=== PATIENT | male | born 2000 | race Caucasian/White ===

== ENCOUNTER 2023-10-06 09:28 | Emergency (ER) | payer OTHER, BC ==
--- NOTE | 2023-10-06 09:46 | ED ---
General Adult HPI - General Source: patient, RN notes reviewed Mode of arrival: ambulatory Limitations: no limitations <Jenaro Bazan - Last Filed: 10/06/23 09:40> <Mary Thomas - Last Filed: 10/06/23 13:33> - General Stated complaint: IHS-Back pain Time Seen by Provider: 10/06/23 09:40 - History of Present Illness Initial comments: 22-year-old male presents emergency Department chief complaint low back injury. Patient was sent over by S for further evaluation possible imaging. Patient states he injured his back while lifting 5 pound buckets at his work in which he works at [employer]. Patient states that the pain makes it difficult to move. States his lumbar spine. (Jenaro Bazan) Patient is a 22-year-old male presented ER with chief complaint of back pain/injury. Patient states he was at work on Monday lifting 5 gallon buckets and he felt a pop in his back. Patient states he's been experiencing pain since. He states that he is also extensive radiating pain or numbness down his left leg with movements to the right. Patient does report it is mildly none in between his legs and states his left leg does know when he moves the right way. Patient is endorsing thoracic and lumbar/pelvic girdle pain. Patient denies any other injuries. Patient denies any fevers, bowel or bladder i ncontinence, IV drug use. (Mary Thomas) - Related Data Previous Rx's Medication Instructions Recorded Cyclobenzaprine [Flexeril] 5 mg PO TID PRN #15 tablet 10/06/23 Lidocaine 5% Patch [Lidoderm 5% 1 patch TOPICAL DAILY #10 patch 10/06/23 Patch] Allergies Allergy/AdvReac Type Severity Reaction Status Date / Time No Known Allergies Allergy Verified 10/06/23 09:59 Review of Systems ROS Other: All systems not noted in ROS Statement are negative. <Jenaro Bazan - Last Filed: 10/06/23 09:40> ROS Other: All systems not noted in ROS Statement are negative. <Mary Thomas - Last Filed: 10/06/23 13:33> ROS Statement: Those systems with pertinent positive or pertinent negative responses have been documented in the HPI. General Exam <Jenaro Bazan - Last Filed: 10/06/23 09:40> General appearance: alert, in no apparent distress Head exam: Present: atraumatic, normocephalic, normal inspection Neck exam: Present: normal inspection. Absent: tenderness, meningismus, lymphadenopathy Respiratory exam: Present: normal lung sounds bilaterally. Absent: respiratory distress, wheezes, rales, rhonchi, stridor Cardiovascular Exam: Present: regular rate, normal rhythm, normal heart sounds. Absent: systolic murmur, diastolic murmur, rubs, gallop, clicks Extremities exam: Present: normal inspection, full ROM, normal capillary refill. Absent: tenderness, pedal edema, joint swelling, calf tenderness Back exam: Present: normal inspection, tenderness (Thoracic/lumbar/pelvic girdle), other (Left straight leg test elicits pain radiating down left leg mainly in the posterior thigh. Patient neurovascularly intact. Bilateral strengths equal) Neurological exam: Present: alert, oriented X3, CN II-XII intact Psychiatric exam: Present: normal affect, normal mood Skin exam: Present: warm, dry, intact, normal color. Absent: rash <Mary Thomas - Last Filed: 10/06/23 13:33> - General Exam Comments Initial Comments: Visual Physical Exam Vital signs reviewed General: Well-appearing, nontoxic, no acute distress. Head: Normocephalic, atraumatic Eyes: PERRLA, EOMI ENT: Airway patent Chest: Nonlabored breathing Skin: No visual rash, normal skin tone Neuro: Alert and oriented 3 Musculoskeletal: No gross abnormalities (Jenaro Bazan) Course Vital Signs 10/06/23 10/06/23 10:00 12:19 Temperature 98 F Pulse Rate 81 82 Respiratory 16 18 Rate Blood Pressure 130/69 127/85 O2 Sat by Pulse 100 98 Oximetry Medical Decision Making <Jenaro Bazan - Last Filed: 10/06/23 09:40> - Radiology Data Radiology results: report reviewed, image reviewed <Mary Thomas - Last Filed: 10/06/23 13:33> - Medical Decision Making I completed the quick note portion of this chart signed Jenaro Bazan PA-C (Jenaro Bazan) Was pt. sent in by a medical professional or institution (, PA, METAL DRILL OPERATOR, urgent care, hospital, or skilled nursing...) When possible be specific @ -No Did you speak to anyone other than the patient for history (EMS, parent, family, police, friend...)? What history was obtained from this source @ -No Did you review nursing and triage notes (agree or disagree)? Why? @ -I reviewed and agree with nursing and triage notes Were old charts reviewed (outside hosp., previous admission, EMS record, old EKG, old radiological studies, urgent care reports/EKG's, skilled nursing records)? Report findings @ -No old charts were reviewed Differential Diagnosis (chest pain, altered mental status, abdominal pain women, abdominal pain men, vaginal bleeding, weakness, fever, dyspnea, syncope, headache, dizziness, GI bleed, back pain, seizure, CVA, palpatations, mental health, musculoskeletal)? @ -Differential Back Pain: Strain, zoster, cauda equina syndrome, epidural abscess, vertebral osteomyelitis, discitis, fracture, subluxation, disc herniation, DJD, spinal stenosis, dissection, AAA, pancreatitis, peptic ulcer disease, pyelonephritis, kidney stone, this is not meant to be an all-inclusive list.able EKG interpreted by me (3pts min.). @ -Non X-rays interpreted by me (1pt min.). @ -Lumbar spine x-rays interpreted by me show no acute process. CT interpreted by me (1pt min.). @ -None done U/S interpreted by me (1pt. min.). @ -None done What testing was considered but not performed or refused? (CT, X-rays, U/S, labs)? Why? @ -None What meds were considered but not given or refused? Why? @ -[I offered analgesics patient refused. Did you discuss the management of the patient with other professionals (professionals i.e. , PA, METAL DRILL OPERATOR, lab, RT, psych nurse, psychologist social, crime analyst, teacher, [employer] officer, ed case manager)? Give summary @ -No Was smoking cessation discussed for >3mins.? @ -No Was critical care preformed (if so, how long)? @ -No Were there social determinants of health that impacted care today? How? (Homelessness, low income, unemployed, alcoholism, drug addiction, transportation, low edu. Level, literacy, decrease access to med. care, correction, rehab)? @ -No Was there de-escalation of care discussed even if they declined (Discuss DNR or withdrawal of care, Hospice)? DNR status @ -No What co-morbidities impacted this encounter? (DM, HTN, Smoking, COPD, CAD, Cancer, CVA, ARF, Chemo, Hep., AIDS, mental health diagnosis, sleep apnea, morbid obesity)? @ -None Was patient admitted / discharged? Hospital course, mention meds given and route, prescriptions, significant lab abnormalities, going to OR and other pertinent info. @ -Discharge. Patient is a 22-year-old male presented ER with chief complaint of back injury. Vital stable. Exam is significant for pain with right leg raise. Patient is in no acute distress and is able to walk. No red flag back pain symptoms. X-rays of lumbar spine show no acute process. I discussed imaging findings with patient. I advised him to continue taking [id number] Tylenol and Motrin for pain control. Patient was prescribed lidocaine patches and low-dose Flexeril. I educated patient on proper use of Flexeril and that it may be sedating. I also instructed patient to only wear lidocaine patches for 12 hours at a time. Return parameters were discussed. Patient discharged stable condition with follow-up to PCP. Patient expressed understanding and agreement with care plan. Undiagnosed new problem with uncertain prognosis? @ -No Drug Therapy requiring intensive monitoring for toxicity (Heparin, Nitro, Insulin, Cardizem)? @ -No Were any procedures done? @ -No Diagnosis/symptom? @ -Muscle spasm Acute, or Chronic, or Acute on Chronic? @ -Acute Uncomplicated (without systemic symptoms) or Complicated (systemic symptoms)? @ -Uncomplicated Side effects of treatment? @ -No Exacerbation, Progression, or Severe Exacerbation? @ -No Poses a threat to life or bodily function? How? (Chest pain, USA, NC, pneumonia, PE, COPD, DKA, ARF, appy, cholecystitis, CVA, Diverticulitis, Homicidal, S uicidal, threat to staff... and all critical care pts) @ -No (Mary Thomas) Disposition <Jenaro Bazan - Last Filed: 10/06/23 09:40> Is patient prescribed a controlled substance at d/c from ED?: No Time of Disposition: 12:01 <Mary Thomas - Last Filed: 10/06/23 13:33> Clinical Impression: Muscle spasm Disposition: HOME SELF-CARE Condition: Stable Instructions (If sedation given, give patient instructions): Acute Low Back Pain (ED) Additional Instructions: Please only were lidocaine patch for 12 hours and then remove for 12 hours. Be aware that Flexeril can be sedative. Please return to the ER for any new or worsening symptoms. Prescriptions: Cyclobenzaprine [Flexeril] 5 mg PO TID PRN #15 tablet PRN Reason: Muscle Spasm Lidocaine 5% Patch [Lidoderm 5% Patch] 1 patch TOPICAL DAILY #10 patch Referrals: None,Stated [Primary Care Provider] - 1-2 days
[2023-10-06 10:19] VITALS: TEMP 98
--- NOTE | 2023-10-06 11:41 | XR ---
EXAMINATION TYPE: XR lumbosacral spine min 4V DATE OF EXAM: 10/06/2023 COMPARISON: None HISTORY: Lumbosacral back pain following lifting injury TECHNIQUE: 5 view lumbar spine FINDINGS: There are 5 lumbar-type vertebral bodies. Pedicles are intact. Facets are normal. Disc heig hts are preserved. Vertebral body heights are preserved. IMPRESSION: 1. Unremarkable 5 view lumbar spine
[2023-10-06 12:23] VITALS: BP 127/85; PULSE 82; RESP 18
== END 2023-10-06 12:20 | disposition home or self-care (01) ==
LOC: EC 09:28
DX: M62.830 Muscle spasm of back (principal); X50.0XXA Overexertion from strenuous movement or load, initial encounter; Y99.0 Civilian activity done for income or pay
CPT/HCPCS: 72110; 99283

== ENCOUNTER → 2023-11-16 | Outpatient (CLI) | payer OTHER ==
--- NOTE | 2023-11-16 09:05 | MR ---
EXAMINATION TYPE: MR lumbar spine wo con DATE OF EXAM: 11/16/2023 8:35 AM CLINICAL INDICATION:Male, 22 years old with history of S39.012D STRAIN OF MUSCLE, FASCIA AND TENDON O F LO; PHH, Low back pain, lifting injury COMPARISON: None TECHNIQUE: Multi planar, multi sequence imaging was performed utilizing: T1-weighted, T2-weighted, a nd turbo inversion recovery imaging of the lumbar spine. IV Contrast: cc . (None if empty) FINDINGS: Alignment: The lumbar vertebral bodies have preserved heights and alignment. Cord: The conus medullaris and the distal spinal cord appear unremarkable with regards to their signa l intensity and morphology. Bones/Discs: Minimal disc degeneration changes with minimal disc space narrowing, osteophytes and Mod ic endplate changes. Intervertebral disc signal is maintained. T12-L1: No evidence of significant spinal canal stenosis or neural foraminal stenosis. L1-L2: No evidence of significant spinal canal stenosis or neural foraminal stenosis. L2-L3: No evidence of significant spinal canal stenosis or neural foraminal stenosis. L3-L4: No evidence of significant spinal canal stenosis. Facet joint arthropathy mild bilateral neura l foraminal stenosis. L4-L5: No evidence of significant spinal canal stenosis. Facet joint arthropathy mild bilateral neura l foraminal stenosis. L5-S1: The disc is rounded posterior morphology without significant spinal canal stenosis. Facet join t arthropathy with mild bilateral neural foraminal stenosis. No significant spinal canal or neural foraminal stenosis in the remainder of the visualized levels. Other findings: None. IMPRESSION: 1. No definitive evidence of disc herniation or significant spinal canal stenosis. 2. Minimal disc degeneration with associated osteoarthritic changes.
== END | disposition home or self-care (01) ==
LOC: RADMRIMAIN 07:47
PROVIDERS: ATTEND Emergency Medicine
DX: M51.16 Intervertebral disc disorders with radiculopathy, lumbar region (principal); M47.26 Other spondylosis with radiculopathy, lumbar region; S39.012D Strain of muscle, fascia and tendon of lower back, subsequent encounter; R20.9 Unspecified disturbances of skin sensation; X58.XXXD Exposure to other specified factors, subsequent encounter
CPT/HCPCS: 72148